=== PATIENT | male | born 1965 | race Caucasian/White ===

== ENCOUNTER → 2017-09-06 | Outpatient (CLI) | payer BC | LOC: M WUC 09:03 | DX: M79.9 Soft tissue disorder, unspecified (principal); S22.31XA Fracture of one rib, right side, initial encounter for closed fracture; X58.XXXA Exposure to other specified factors, initial encounter; Y92.89 Other specified places as the place of occurrence of the external cause | CPT/HCPCS: 71101 ==

== ENCOUNTER 2019-01-15 12:29 | Inpatient (IN) | payer BC ==
[~2019-01-15] VITALS: Ht 190.5 cm; Wt 121.1 kg
[~2019-01-15 12:29] MED LIST: FENO160T10 PO; HYDR12.55 PO; MAGN500C PO; MULTCAP PO; OMEGCAP4 PO; ZOLO50TA PO
[2019-01-15] MEDS ORDERED: GAS125CA15 PO (13:09)
[2019-01-15] MEDS ORDERED: ROPI0.5T PO (13:09)
[2019-01-15 13:10] LABS: BASO % 0.6 % (0.0-1.0); EOS # 0.1 10^3/uL (0.0-0.50); EOS % 1.9 % (0.0-3.0); HEMATOCRIT 46.8 % (42.0-52.0); HEMOGLOBIN 15.6 g/dl (13.5-17.5); LYMPH # 1.6 10^3/uL (1.5-4.5); LYMPH % 23.9 % (24.0-44.0); MEAN CORPUSCULAR HEMOGLOBIN 28.2 pg (27.0-33.0); MEAN CORPUSCULAR HGB CONC 33.3 g/dl (32.0-36.5); MEAN CORPUSCULAR VOLUME 84.6 fl (80.0-96.0); MONO # 0.6 10^3/uL (0.0-0.8); MONO % 8.4 % (0.0-5.0); NEUTROPHILS # 4.4 10^3/uL (1.8-7.7); NEUTROPHILS % 64.9 % (36.0-66.0); PLATELET COUNT, AUTOMATED 258 10^3/uL (150-450); RED BLOOD COUNT 5.53 10^6/uL (4.30-6.10); WHITE BLOOD COUNT 6.7 10^3/uL (4.0-10.0)
[2019-01-15 13:20] LABS: INR 1.01; PROTHROMBIN TIME 13.4 SECONDS (12.1-14.4)
--- NOTE | 2019-01-15 13:20 | REP ---
Clinical: Possible cerebrovascular infarction Comparison: None . Findings: The ventricles, sulci, and cisterns are normal in position and appearance. Ko-white differentiation is maintained. No acute intracranial hemorrhage, mass/mass effect, pathology or trauma/injury. No evidence for acute infarction. No extra-axial fluid collection. Calvarium is intact. Paranasal sinuses and mastoid air cells are clear. Impression: Normal noncontrast head CT. No evidence for acute intracranial pathology or trauma/injury. Electronically Signed by Crow Bruce MD 01/15/2019 01:12 P
[2019-01-15 13:21] LABS: PARTIAL THROMBOPLASTIN TIME 26.9 SECONDS (25.4-37.6)
--- NOTE | 2019-01-15 13:23 | REP ---
Clinical: Cerebrovascular infarction . Comparison: 09/06/2017 . Findings: The mediastinum and cardiac silhouette are stable and within normal limits for portable technique. The lung corado are clear without acute consolidation, effusion, or pneumothorax. Skeletal structures are intact. Impression: No acute cardiopulmonary process appreciated. Electronically Signed by Crow Bruce MD 01/15/2019 01:14 P
[2019-01-15 13:34] LABS: BLOOD UREA NITROGEN 16 MG/DL (7-18); CARBON DIOXIDE LEVEL 27 MEQ/L (21-32); CHLORIDE LEVEL 107 MEQ/L (98-107); CPK CREATINE PHOSPHOKINASE 147 U/L (39-308); CREATININE FOR GFR 1.08 MG/DL (0.70-1.30); GLOMERULAR FILTRATION RATE > 60.0 (>56); GLUCOSE, FASTING 110 MG/DL (70-100); MAGNESIUM LEVEL 2.1 MG/DL (1.8-2.4); MB/CK RELATIVE INDEX 1.02 (< OR =4); SODIUM LEVEL 143 MEQ/L (136-145); TROPONIN I < 0.02 NG/ML (< 0.10)
[2019-01-15] MEDS ORDERED: HYDR25TAB PO (14:15)
[2019-01-15] MEDS ORDERED: SILD20TA11 PO (14:15)
[2019-01-15] MEDS ORDERED: [UNRECOGNIZED DRUG - OTHER] PO (14:15)
--- NOTE | 2019-01-15 14:15 | HPEPDOC ---
[facility] Medical History & Physical Date of Admission Jan 15, 2019 Date of Service: Jan 15, 2019 Primary Care Physician: BELGICA CORNEJO M.D. History and Physical CHIEF COMPLAINT: LETHARGY, WEAKNESS, CHANGES IN SPEECH HISTORY OF PRESENT ILLNESS: 53 yo male in his usual state of health, woke up this morning lethargic. Was noted by his to have changes in his speech, appeared lethargic, with some uncoordinated motor function. This somewhat improved around 11:30. Patient has no recall of this period from 9:30 to 11:30 this morning. The night before was a typical evening for him. Out for dinner with his , pizza/wings and four beers. [place]ed to his [place], sat in front of a bonfire, then went to sleep around 11:30pm. Of note, he was found to be bradycardic. Patient states he is aware, and this has been ongoing for several years. Colonoscopy WNL 2016. PAST MEDICAL HISTORY: #ABDON/CPAP #HTN #hypertriglyceridemia PAST SURGICAL HISTORY: Denies SOCIAL HISTORY: Marital status: Resides in: [place] Employment: employed Tobacco use: Denies ETOH: socially, few drinks/week Illicit drug use: denies Tattoos done unprofessionally: no IV drug use: denies FAMILY HISTORY: Father: at 44 from MVA, HTN Mother: 76, living Hereditary Diseases: denies ALLERGIES: Please see below. REVIEW OF SYSTEMS: Negative except as per HPI. HOME MEDICATIONS: Please see below. PHYSICAL EXAMINATION: VITAL SIGNS: See below GENERAL APPEARANCE: NAD, lethargic HEENT: NC/AT, EOMI, PERRLA CARDIOVASCULAR: +S1S2, bradycardic, RRR LUNGS: CTA B/L ABDOMEN: soft, obese, NT, +BS EXTREMITIES: no edema NEUROLOGICAL: CN II - XII grossly intact, sensation intact throughout, strength 5/5 b/l upper/lower extremities PSYCHIATRIC: AAOx3 LABORATORY DATA: See below. MICROBIOLOGY: Please see below. ASSESSMENT: 53 yo male for focal neurologic deficits, essentially resolved with PMHx HTN, DLP, ABDON/CPAP. #TIA - MRI/MRA pending - carotid US pending - lipid panel pending - echocardiogram pending - neurology c/s pending - 20 mg Zocor/ASA 325 - PT/OT #bradycardia - telemetry monitoring - ECG #HTN - continue HCTZ #DLP - as above, statin therapy, fenofibrate #ABDON - patient may use own CPAP #Depression - continue zoloft #DVT prophylaxis - lovenox Vital Signs Vital Signs Date Time Temp Pulse Resp B/P (MAP) Pulse Ox O2 Delivery O2 Flow Rate FiO2 01/15/19 13:31 154/74 (100) 01/15/19 13:29 49 94 01/15/19 12:52 97.2 16 Room Air Laboratory Data Labs 24H Laboratory Tests 2 01/15/19 12:56: Immature Granulocyte % (Auto) 0.3, White Blood Count 6.7, Red Blood Count 5.53, Hemoglobin 15.6, Hematocrit 46.8, Mean Corpuscular Volume 84.6, Mean Corpuscular Hemoglobin 28.2, Mean Corpuscular Hemoglobin Concent 33.3, Red Cell Distribution Width 13.7, Platelet Count 258, Neutrophils (%) (Auto) 64.9, Lymphocytes (%) (Auto) 23.9L, Monocytes (%) (Auto) 8.4H, Eosinophils (%) (Auto) 1.9, Basophils (%) (Auto) 0.6, Neutrophils # (Auto) 4.4, Lymphocytes # (Auto) 1.6, Monocytes # (Auto) 0.6, Eosinophils # (Auto) 0.1, Basophils # (Auto) 0.0, Nucleated Red Blood Cells % (auto) 0.0, Prothrombin Time 13.4, Prothromb Time International Ratio 1.01, Activated Partial Thromboplast Time 26.9, Anion Gap 9, Glomerular Filtration Rate > 60.0, Blood Urea Nitrogen 16, Creatinine 1.08, Sodium Level 143, Potassium Level 4.0, Chloride Level 107, Carbon Dioxide Level 27, Calcium Level 9.0, Total Creatine Kinase 147, Magnesium Level 2.1, Ammonia 16, Creatine Kinase MB 2.0, Creatine Kinase MB Relative Index 1.02, Troponin I < 0.02 01/15/19 13:02: POC Glucose (Misc Panel) 111H, POC Sodium (Misc Panel) 141, POC Potassium (Misc Panel) 3.9, POC Chloride (Misc Panel) 105, POC Total CO2 (Misc Panel) 26.0, POC Blood Urea Nitrogen (Misc Panel 16, POC Ionized Calcium (Misc Panel) 4.7, POC Creatinine (Misc Panel) 1.0, POC Hematocrit (Misc Panel) 47.0 01/15/19 13:05: Bedside Glucose (Misc Panel) 107H CBC/BMP Laboratory Tests 01/15/19 12:56 Red Blood Count 5.53, Mean Corpuscular Volume 84.6, Mean Corpuscular Hemoglobin 28.2, Mean Corpuscular Hemoglobin Concent 33.3, Red Cell Distribution Width 13.7, Neutrophils (%) (Auto) 64.9, Lymphocytes (%) (Auto) 23.9 L, Monocytes (%) (Auto) 8.4 H, Eosinophils (%) (Auto) 1.9, Basophils (%) (Auto) 0.6, Neutrophils # (Auto) 4.4, Lymphocytes # (Auto) 1.6, Monocytes # (Auto) 0.6, Eosinophils # (Auto) 0.1, Basophils # (Auto) 0.0, Calcium Level 9.0, Total Creatine Kinase 147 Home Medications Scheduled Fenofibrate (Fenofibrate) 160 Mg Tab, 160 MG PO DAILY Hydrochlorothiazide (Hydrochlorothiazide) 25 Mg Tablet, 12.5 MG PO DAILY Ropinirole HCl (Ropinirole HCl) 0.5 Mg Tablet, 0.5 MG PO QHS Sertraline Hcl (Zoloft) 50 Mg Tab, 50 MG PO DAILY Simethicone (Gas Relief) 125 Mg Capsule, 125 MG PO ACHS [Shaklee Vitamins] , 1 TAB PO DAILY Scheduled PRN Sildenafil Citrate (Sildenafil Citrate) 20 Mg Tablet, 20 MG PO ASDIRECTED PRN for ERECTILE DYSFUNCTION Allergies Coded Allergies: No Known Drug Allergies (Verified Allergy, Unknown, 01/15/19) A-FIB/CHADSVASC A-FIB History Current/History of A-Fib/PAF?: No Current PO Anticoag Therapy: No HAMILTON HART MD Jan 15, 2019 14:15
[2019-01-15 14:41] LABS: ALBUMIN 4.1 GM/DL (3.2-5.2); ALT/SGPT 36 U/L (12-78); BILIRUBIN,DIRECT 0.1 MG/DL (0.0-0.2); BILIRUBIN,TOTAL 0.5 MG/DL (0.2-1.0); TOTAL PROTEIN 7.6 GM/DL (6.4-8.2)
[2019-01-15] MEDS: ASPIRIN 81 MG CHEW TABLET PO SCH (14:53)
--- NOTE | 2019-01-15 15:06 | REP ---
Clinical: Transient ischemic attack . Technique: Ko scale and color Doppler evaluation using linear high frequency transducer Findings: Two-dimensional ko scale and color images demonstrate normal arterial lumen with laminar flow and no appreciable narrowing. Color Doppler interrogation demonstrates normal arterial wave patterns and velocities with no significant spectral broadening. Normal flow direction is appreciated in the bilateral vertebral arteries. RIGHT (cm/s) LEFT (cm/s) ICA peak systolic velocity 80.7 63.9 ICA diastolic velocity 22.6 23.4 ECA peak systolic velocity 121.6 131.9 CCA peak systolic velocity 158.9 139.2 ICA/CCA ratio 0.51 0.46 Impression: No hemodynamically significant areas of narrowing or stenosis appreciated. Based on set standards narrowing falls within the less than 50% range. Electronically Signed by Crow Bruce MD 01/15/2019 02:57 P
[2019-01-15] MEDS ORDERED: SLF 3 ML SYR IV PRN (17:00)
--- NOTE | 2019-01-15 17:06 | REP ---
Clinical: Transient ischemic attack. Technique: Standard noncontrast MRI of the brain. Findings: Ventricles, sulci, and cisterns are symmetric and normal. Ko-white differentiation is maintained. No acute intracranial hemorrhage, mass or mass effect. No signal abnormalities are appreciated. Diffusion weighted sequence appears normal and without evidence for acute infarction. Midline and midbrain structures are symmetric and intact/normal. No extra-axial collection. The calvarium is intact. Visualized orbits and sinuses are normal. Impression: Negative noncontrast MRI of the brain. No evidence for acute intracranial infarction, hemorrhage or mass. Electronically Signed by Crow Bruce MD 01/15/2019 04:59 P
--- NOTE | 2019-01-15 17:07 | REP ---
CLINICAL: Rule out cerebral infarction. TECHNIQUE: Axial noncontrast 3-D [id number] source images with multiplanar MIP reformations. COMPARISON: None FINDINGS: There is symmetric appearance to the intracranial vasculature and venetie of Lucas, which appears relatively normal. The visualized portions of the vertebrobasilar system appear intact. There is no evidence for arteriovenous malformation, aneurysm, or significant loss of vascular signal to suggest areas of decreased vascular supply. IMPRESSION: No evidence for aneurysm, AVM, or significant further pathology. Intracranial vasculature appears relatively symmetric. Electronically Signed by Crow Burce MD 01/15/2019 05:00 P
[2019-01-15 18:15] VITALS: BP 149/83
[2019-01-15] MEDS ORDERED: ACETAMINOPHEN TAB 650MG DOSE (2X325MG) PO ONE (19:15)
--- NOTE | 2019-01-15 19:38 | ECGEPIP ---
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
[2019-01-15 20:00] VITALS: BP 138/77
[2019-01-15 20:13] LABS: CPK CREATINE PHOSPHOKINASE 127 U/L (39-308); MB/CK RELATIVE INDEX 0.87 (< OR =4); TROPONIN I < 0.02 NG/ML (< 0.10)
[2019-01-15] MEDS: SLF 3 ML SYR IV SCH (20:35)
[2019-01-15] MEDS: SIMVASTATIN 20 MG TAB PO SCH ×2 (20:54→21:09)
[2019-01-15 23:59] VITALS: BP 139/72
[2019-01-16 04:00] VITALS: BP 145/80
[2019-01-16 05:37] LABS: HEMATOCRIT 45.7 % (42.0-52.0); HEMOGLOBIN 15.1 g/dl (13.5-17.5); MEAN CORPUSCULAR HEMOGLOBIN 27.9 pg (27.0-33.0); MEAN CORPUSCULAR VOLUME 84.5 fl (80.0-96.0); PLATELET COUNT, AUTOMATED 267 10^3/uL (150-450); RED BLOOD COUNT 5.41 10^6/uL (4.30-6.10); WHITE BLOOD COUNT 8.5 10^3/uL (4.0-10.0)
[2019-01-16] MEDS: SLF 3 ML SYR IV SCH ×3 (06:02→20:53)
[2019-01-16 06:06] LABS: ALBUMIN 3.4 GM/DL (3.2-5.2); ALT/SGPT 39 U/L (12-78); BILIRUBIN,TOTAL 0.7 MG/DL (0.2-1.0); BLOOD UREA NITROGEN 13 MG/DL (7-18); CARBON DIOXIDE LEVEL 27 MEQ/L (21-32); CHLORIDE LEVEL 109 MEQ/L (98-107); CHOLESTEROL LEVEL 178 MG/DL (<200); CHOLESTEROL RISK RATIO 5.741 (<5); CREATININE FOR GFR 0.93 MG/DL (0.70-1.30); GLOMERULAR FILTRATION RATE > 60.0 (>56); GLUCOSE, FASTING 107 MG/DL (70-100); HDL CHOLESTEROL 31 MG/DL (>40); LDL CHOLESTEROL 116 MG/DL (<100); NON-HDL-C 147 MG/DL; POTASSIUM SERUM 3.6 MEQ/L (3.5-5.1); SODIUM LEVEL 142 MEQ/L (136-145); TOTAL PROTEIN 7.2 GM/DL (6.4-8.2); TRIGLYCERIDES LEVEL 153 MG/DL (<150)
[2019-01-16 08:00] VITALS: BP 157/77
--- NOTE | 2019-01-16 08:37 | IPNPDOC ---
Text Note Date of Service The patient was seen on 01/16/19. NOTE Subjective: Patient seen and examined at bedside. Feels better today. Overnight events significant for bradycardia. He was woken up by staff for assessment, with no complaints. He did wear his CPAP at night. Objective: PHYSICAL EXAMINATION: VITAL SIGNS: See below GENERAL APPEARANCE: NAD, lethargic HEENT: NC/AT, EOMI, PERRLA CARDIOVASCULAR: +S1S2, bradycardic, RRR LUNGS: CTA B/L ABDOMEN: soft, obese, NT, +BS EXTREMITIES: no edema NEUROLOGICAL: CN II - XII grossly intact, sensation intact throughout, strength 5/5 b/l upper/lower extremities PSYCHIATRIC: AAOx3 LABORATORY DATA: See below. MICROBIOLOGY: Please see below. ASSESSMENT: 53 yo male for focal neurologic deficits, essentially resolved with PMHx HTN, DLP, ABDON/CPAP noted to be bradycardic. #TIA - MRI/MRA unremarkable - carotid US unremarkable - lipid panel abnormal - echocardiogram pending - neurology c/s pending - 20 mg Zocor/ASA 325 - PT/OT - cleared #bradycardia - telemetry monitoring - repeat ecg pending - discussed with cardiology - no indication for PPM at this time, nocturnal bradycardia related to his ABDON #HTN - continue HCTZ #DLP - as above, statin therapy, fenofibrate #ABDON - patient may use own CPAP #Depression - on zoloft #DVT prophylaxis - lovenox VS,Fishbone, I+O VS, Fishbone, I+O Laboratory Tests 01/15/19 12:56 Red Blood Count 5.53, Mean Corpuscular Volume 84.6, Mean Corpuscular Hemoglobin 28.2, Mean Corpuscular Hemoglobin Concent 33.3, Red Cell Distribution Width 13.7, Neutrophils (%) (Auto) 64.9, Lymphocytes (%) (Auto) 23.9 L, Monocytes (%) (Auto) 8.4 H, Eosinophils (%) (Auto) 1.9, Basophils (%) (Auto) 0.6, Neutrophils # (Auto) 4.4, Lymphocytes # (Auto) 1.6, Monocytes # (Auto) 0.6, Eosinophils # (Auto) 0.1, Basophils # (Auto) 0.0 01/16/19 05:16 Red Blood Count 5.41, Mean Corpuscular Volume 84.5, Mean Corpuscular Hemoglobin 27.9, Mean Corpuscular Hemoglobin Concent 33.0, Red Cell Distribution Width 13.7, Calcium Level 8.0 L, Aspartate Amino Transf (AST/SGOT) 28, Alanine Aminotransferase (ALT/SGPT) 39, Alkaline Phosphatase 36 L, Total Bilirubin 0.7, Triglycerides Level 153 H, LDL Cholesterol 116 H, Total Protein 7.2, Albumin 3.4 Vital Signs Date Time Temp Pulse Resp B/P (MAP) Pulse Ox O2 Delivery O2 Flow Rate FiO2 01/16/19 04:00 96.9 45 16 145/80 (101) 99 01/15/19 17:48 Room Air I&O- Last 24 Hours up to 6 AM 01/16/19 06:00 Intake Total 1235 ml Output Total 0 ml Balance 1235 ml HAMILTON HART MD Jan 16, 2019 08:37
[2019-01-16] MEDS: ASPIRIN 81 MG CHEW TABLET PO SCH (08:46)
[2019-01-16] MEDS ORDERED: ACETAMINOPHEN TAB 650MG DOSE (2X325MG) PO PRN (11:15)
[2019-01-16 12:00] VITALS: BP 145/77
[2019-01-16] MEDS: SIMETHICONE 80 MG CHEW TAB PO SCH ×3 (12:00→20:53)
[2019-01-16] MEDS ORDERED: PILL CUTTER 1 EACH XX PRN (13:00)
[2019-01-16] MEDS: hydroCHLOROthiazide 12.5 MG CAPSULE PO SCH (13:42)
[2019-01-16] MEDS: FENOFIBRATE 145 MG TAB (TRICOR) PO SCH (13:42)
[2019-01-16] MEDS: SERTRALINE HCL 50 MG TAB PO SCH (13:42)
[2019-01-16 16:00] VITALS: BP 144/77
--- NOTE | 2019-01-16 18:41 | ECGEPIP ---
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 No significant change from 01/15/19. Electronically Signed on 01-16-2019 18:41:34 EDT by Yandel Lucas
[2019-01-16 20:00] VITALS: BP 146/70
[2019-01-16] MEDS: SIMVASTATIN 20 MG TAB PO SCH (20:53)
[2019-01-16] MEDS ORDERED: rOPINIRole 0.25 MG TAB(REQUIP) PO SCH (21:00)
[2019-01-16 23:59] VITALS: BP 138/68
[2019-01-17 04:00] VITALS: BP 138/76
[2019-01-17] MEDS: SLF 3 ML SYR IV SCH ×2 (06:04→13:05)
--- NOTE | 2019-01-17 06:47 | ECHO ---
DATE OF PROCEDURE: 01/16/2019 DATE OF : 1965 AGE: 53 GENDER: Male HEIGHT: 75 inches WEIGHT: 271 pounds BODY SURFACE AREA: 2.5 m2 INPATIENT: PCU - Room 3229 REFERRING PHYSICIAN: Dr. Lucas Banks INDICATION: Transient ischemic attack. MEASUREMENTS; 2-D Measurements: RV: 4.1 cm LV: 4.8 cm Septum: 1.3 cm Posterior wall: 1.2 cm Aortic root: 3.6 cm LA: 4.5 cm LVEF: 75% Doppler Measurements: AV: 2.0 m/s LVOT: 1.5 m/s LVOT diameter: 2.0 cm Mean AV systolic gradient: 9 mmHg MV - E 108 A 52 EA ratio 2.1 Early mitral deceleration time: 254 ms E prime: 10.7 A prime: 9.5 E/E prime ratio: 10 PCWP: 14 mmHg PV: 1.0 m/s Pulmonary artery acceleration time: 140 ms RVSP: 30 mmHg IVC: 2.2 cm COMMENTS: Sinus bradycardia without intraventricular conduction disturbance. Technically challenging study in light of the patient's body habitus, but diagnostically useful information was still obtained. M-mode and two-dimensional echocardiography was performed with pulsed, continuous wave, color flow and tissue Doppler studies. Mild concentric left ventricular hypertrophy with hyperkinetic wall motion. Mildly dilated left atrium with currently normal assessment of LV diastolic function and estimated mean left atrial pressure upper limits of normal. Normal right heart chamber sizes and wall motion with current estimated pulmonary arterial pressure upper limits of normal to borderline increased. IVC size upper limits of normal with adequate respiratory collapse against right heart failure. Normal appearing and functioning valvular structures. Normal aortic root size. No apparent intracardiac mass or pericardial effusion. If a cardiac source of embolic material is seriously suspect, would recommend a transesophageal echocardiogram. MTDD
[2019-01-17 08:00] VITALS: BP 132/80
[2019-01-17] MEDS: SERTRALINE HCL 50 MG TAB PO SCH (08:47)
[2019-01-17] MEDS: FENOFIBRATE 145 MG TAB (TRICOR) PO SCH (08:47)
[2019-01-17] MEDS: hydroCHLOROthiazide 12.5 MG CAPSULE PO SCH (08:47)
[2019-01-17] MEDS: SIMETHICONE 80 MG CHEW TAB PO SCH ×3 (08:48→17:49)
[2019-01-17] MEDS ORDERED: ASPIRIN 81 MG CHEW TABLET PO SCH (09:00)
--- NOTE | 2019-01-17 11:26 | IPNPDOC ---
Subjective Date Seen The patient was seen on 01/17/19. Subjective Chief Complaint/HPI 53 yo male admitted with changes in speech and lethargy concerning for TIA, ABDON. neurology consulted. Patients bradycardia during night improving and asymptomatic (with rates between 47-60). No reoccurance of heart rate less than 40. EEG this AM (out of room at 1130)and patient seen at 1700. Cardiac echo unrevealing Currently, patient and states he is back to baseline, no gait changes, no HODGSON, no speech changes, no "unfocused" feelings Objective Physical Examination General Exam: Positive: Alert, Cooperative, No Acute Distress Eye Exam: Positive: PERRLA ENT Exam: Positive: Mucous membr. moist/pink Heart Exam: Positive: Bradycardic (58) Telemetry: Positive: Bradycardia Extremity Exam: Positive: Normal pulses (no edema to ankles) Skin Exam: Positive: Nl turgor and temperature Neuro Exam: Positive: Normal Gait, Normal Speech, Strength at 5/5 X4 ext Psych Exam: Positive: Mental status NL, Mood NL, Oriented x 3 Assessment /Plan Assessment TIA vs Seizure Await neurology recommendations; continue lipid control and ASA Bradycardia - patient is on shakely vitamin with herbs for heart health (unknown ingredients). Advised to stop vitamins until seen by PCP Plan/VTE VTE Prophylaxis Ordered?: Yes Plan possible d/c home today VS, I&O, 24H, Fishbone Vital Signs/I&O Vital Signs Date Time Temp Pulse Resp B/P (MAP) Pulse Ox O2 Delivery O2 Flow Rate FiO2 01/17/19 08:00 98.0 53 17 132/80 (97) 98 01/15/19 17:48 Room Air I&O- Last 24 Hours up to 6 AM 01/17/19 06:00 Intake Total 1800 ml Output Total 3550 ml Balance -1750 ml ERUM RAMOS DO Jan 17, 2019 11:25
[2019-01-17 12:00] VITALS: BP 136/80
--- NOTE | 2019-01-17 14:02 | CR ---
DATE OF CONSULTATION: 01/16/2019 REFERRING PROVIDER: Lucas Banks MD REASON FOR CONSULTATION: Suspected transient ischemic attack (TIA). Bucky Mireles is a 53-year-old male with past medical history significant for migraine headaches. The patient had an episode of acute altered mental status. The patient was at home. Went to bed fairly early. Woke up in the morning and was having a conversation with his . The patient's noted that he was quite lethargic, falling asleep in conversation. The patient had relations with his in the morning, but the states that he did not have an orgasm. The patient did, however, suffer with a significant migraine headache later in the morning and throughout the rest of the day. The patient does have a strong history of migraines in the past but has never had postcoital migraines prior to this. The patient was noted to walk towards the bathroom where his was, and he was having some dysarthria and confusion. He was stating that he was having trouble walking. He was not noted to have any significant facial droop or weakness on any side of the body. His called 9-1-1. The patient has had a loss of memory from the onset of the morning event to after received an MRI of the brain. MRI of the brain completed at [facility] was negative for any acute stroke. MR angiogram of the brain was also negative. Carotid ultrasounds were negative. The patient has been placed on aspirin 324 mg daily. He is also on statin therapy. The patient at this point in time is back to baseline. He has no recollection of the events that occurred. He did not have classical symptoms of transient global amnesia with repeating himself, although the event sounds very similar. The event that occurred could certainly be a TIA resulting in transient global amnesia, possible migraine, and also a seizure needs to be excluded. The patient will remain in the hospital on telemetry monitoring. He has been noted to have asymptomatic bradycardia during sleep related to atrial fibrillation, as per cardiology. The patient was not recommended to have any pacemaker placement. The patient is willing to continue low-dose 81-mg aspirin. Electroencephalogram (EEG) has been ordered. PAST MEDICAL HISTORY: Hypertension. Hypertriglyceridemia. Obstructive sleep apnea, on continuous positive airway pressure (CPAP). Obesity. PAST SURGICAL HISTORY: None. SOCIAL HISTORY: The patient socially uses alcohol. Denies any illicit drugs. Denies use of tobacco. FAMILY HISTORY: Father at the age of 44 from motor vehicle accident. Mother alive and living at 76. Otherwise, noncontributory. ALLERGIES: No known drug allergies. HOME MEDICATIONS: - Tricor 145 mg by mouth every day - simethicone 125 mg by mouth nightly - sertraline 50 mg by mouth every day - ropinirole 0.5 mg by mouth nightly - hydrochlorothiazide 25 mg half tablet by mouth every day PHYSICAL EXAMINATION: Blood pressure is 144/77, pulse rate 51, respiratory rate is 16, temperature is 98.2 degrees Fahrenheit, oxygenation 99% on room air, current height is 6 feet 3 inches, current weight is 124.3 kg. The patient is awake, alert, oriented to person, place, and time. Speech, language, comprehension, and repetition are intact. Pupils are 3 mg, round, reactive to light. Extraocular movements are intact in all directions without nystagmus. Sensation to V1, V2, V3 is intact to light touch. No facial asymmetry to activation. Palate elevates symmetrically. Tongue is midline. No weakness of sternocleidomastoids bilaterally. There is a subtle asymmetry of the right corner of the mouth with smiling, though, according to the patient and the patient's , this was his baseline. Hearing is subjectively equal to finger rub. There is no pronator drift. Strength is 5/5 including bilateral biceps, deltoids, triceps, handgrip, iliopsoas, quadriceps, anterior tibialis. Deep tendon reflexes are 2s throughout. Romberg test is deferred. Sensory is intact to light touch in all four extremities. Coordination: Normal [id number] without any signs of gross ataxia or dysmetria. ASSESSMENT: 1. Possible transient ischemic attack, either thalamic versus posterior left temporoparietal. 2. Transient global amnesia secondary to transient ischemic attack verus postcoital migraine. 3. Rule out seizure. PLAN: Continue aspirin 81 mg by mouth every day. Continue Zocor 20 mg by mouth acute distress. Continue tricor 145 mg by mouth every day. Obtain EEG. Rule out seizure. The patient can followup in the [facility] 6-8 weeks after discharge. [facility]
[2019-01-17 16:00] VITALS: BP 136/78
--- NOTE | 2019-01-17 17:46 | DS.PDOC ---
Discharge Summary General Date of Admission Jan 15, 2019 at 14:03 Date of Discharge 01/17/19 Primary Care Physician: JORGE CORNEJO M.D. Attending Physician: ERUM RAMOS DO Specialist/Consultants Involve: TAMMY AGUILERA MD Discharge Summary PROCEDURES PERFORMED DURING STAY: EEG, ECHO, MRI, Neck Vascular studies ADMITTING DIAGNOSES: TIA, Bradycardia, HTN, ABDON DISCHARGE DIAGNOSES: 1. TIA 2. possible seizure disorder 3. HTN 4. ABDON 5. Bradycardia COMPLICATIONS/CHIEF COMPLAINT: Transient Ischemic Attack. HISTORY OF PRESENT ILLNESS: 53 yo male brought to ED with possible CVA due to "unfocused eye/behaviors", gait instability and difficulty articulating per . See H&P for details. HOSPITAL COURSE: Admitted, serial neurological exams with improving trend back to baseline. he initially has asymptomatic bradycardia (38's) but this improved and 24 hour prior to discharge, his HR was between 45-60. Patient had been taking Shakley vitamins and herbs for "heart health" and it is unknown if it may have contributed to bradycardia. He has not had these vitamins for 2 days. As for his TIA symptoms, he was placed on ASA, continued with cholesterol lower drugs and neurology consulted. EEG to r/o seizures is pending. Resulting workup showed no carotid stenosis or signs of CVA. DISCHARGE MEDICATIONS: Please see below. ALLERGIES: Please see below. PHYSICAL EXAMINATION ON DISCHARGE: General: pleasant, NAD, AAOx3 HRRR LCTA Ext: no edema Neuro: CN3-12 intact, no gross motor or sensory deficits LABORATORY DATA: Please see below. IMAGING: Vascular US NECK:Impression: No hemodynamically significant areas of narrowing or stenosis appreciated. Based on set standards narrowing falls within the less than 50% range. MRI/MRA brain:Impression: Negative noncontrast MRI of the brain. No evidence for acute intracranial infarction, hemorrhage or mass. no aneurysm, AVM or vascular abnormality ECHO: Mild concentric left ventricular hypertrophy with hyperkinetic wall motion. Mildly dilated left atrium with currently normal assessment of LV diastolic function and estimated mean left atrial pressure upper limits of normal. Normal right heart chamber sizes and wall motion with current estimated pulmonary arterial pressure upper limits of normal to borderline increased. IVC size upper limits of normal with adequate respiratory collapse against right heart failure. Normal appearing and functioning valvular structures. Normal aortic root size. No apparent intracardiac mass or pericardial effusion. PROGNOSIS:GOOD ACTIVITY: [As tolerated DIET: regular DISCHARGE PLAN:d/c home DISPOSITION: stable DISCHARGE INSTRUCTIONS: 1. take 81mg ASA daily 2. continue with zocor and tricor 3. reviewed "marlow 4 hour treatment window" for CVA should symptoms reoccur ITEMS TO FOLLOWUP ON ON OUTPATIENT: 1. Neurology in 6-8 weeks to review results of EEG and TIA 2. [facility] to review ABDON in 2-4 weeks 3. PCP - Jorge Cornejo MD in 5-7 days for evaluation of herbal vitamins and possible bradycardia, consider zio patch or holter monitor if bradycardia persists DISCHARGE CONDITION: stable DISCHARGE TIME: 45 minutes. Vital Signs/I&Os Vital Signs Date Time Temp Pulse Resp B/P (MAP) Pulse Ox O2 Delivery O2 Flow Rate FiO2 01/17/19 16:00 98.0 56 17 136/78 (97) 98 01/15/19 17:48 Room Air I&O- Last 24 Hours up to 6 AM 01/17/19 06:00 Intake Total 1800 ml Output Total 3550 ml Balance -1750 ml Laboratory Data Labs 24H Laboratory Tests 01/16/19 05:16 Red Blood Count 5.41, Mean Corpuscular Volume 84.5, Mean Corpuscular Hemoglobin 27.9, Mean Corpuscular Hemoglobin Concent 33.0, Red Cell Distribution Width 13.7, Calcium Level 8.0 L, Aspartate Amino Transf (AST/SGOT) 28, Alanine Aminotransferase (ALT/SGPT) 39, Alkaline Phosphatase 36 L, Total Bilirubin 0.7, Triglycerides Level 153 H, LDL Cholesterol 116 H, Total Protein 7.2, Albumin 3.4 Discharge Medications Scheduled Aspirin (Children's Aspirin) 81 Mg Tab.chew, 81 MG PO DAILY Fenofibrate (Fenofibrate) 160 Mg Tab, 160 MG PO DAILY, (Reported) Hydrochlorothiazide (Hydrochlorothiazide) 25 Mg Tablet, 12.5 MG PO DAILY, (Reported) Ropinirole HCl (Ropinirole HCl) 0.5 Mg Tablet, 0.5 MG PO QHS, (Reported) Sertraline Hcl (Zoloft) 50 Mg Tab, 50 MG PO DAILY, (Reported) Simethicone (Gas Relief) 125 Mg Capsule, 125 MG PO ACHS, (Reported) Simvastatin (Simvastatin) 20 Mg Tablet, 20 MG PO QHS Allergies Coded Allergies: No Known Drug Allergies (Verified Allergy, Unknown, 01/15/19) ERUM RAMOS DO Jan 17, 2019 17:44
[2019-01-17] MEDS ORDERED: ASPI81CH8 PO (17:59)
[2019-01-17] MEDS ORDERED: SIMV20TA2 PO (17:59)
--- NOTE | 2019-01-18 16:55 | EEG ---
DATE OF PROCEDURE: 01/17/2019 REFERRING PHYSICIAN: Lucas Banks MD DIAGNOSIS: Confusion, headache and feeling out of it during episode. EEG #: [id number] - 99 HISTORY The patient is a 53-year-old man who was admitted at [facility] due to be lethargic, alteration of speech, incoordination and inability to recall the episode. This EEG was done to rule out epileptic potential. He is currently taking aspirin, simvastatin, ropinirole, Zoloft, etc.. TECHNICAL DESCRIPTION This digital EEG was recorded by 21 scalp, ear and two EKG electrodes and was reviewed in bipolar and referential montages following reformatting in 10-20 international electrode placement system. INTERPRETATION The patient was noted to be in awake and drowsy states during this EEG. Resting awake background rhythm consisted of 9 Hz alpha activity measuring 10-30 microvolts in amplitude which was symmetric and reactive to eye opening. Attenuation of posterior dominant rhythm was seen during transition to drowsiness. Stage I and II sleep were reviewed and symmetric bilaterally. Hyperventilation and photic stimulation remained unremarkable. EKG revealed bradycardia. No focal, lateralizing or epileptiform abnormalities were seen. No clinical or electrographic seizures were recorded. CONCLUSION This EEG in awake, drowsy states, stage I and II sleep is within normal limits.
== END 2019-01-17 18:51 | disposition home or self-care (01) | DRG 47 ==
LOC: M ED 12:29 → EDBD 12:29 → M ED INP 14:03 → M PCU 18:00
PROVIDERS: ADMIT Internal Medicine; ATTEND Family Medicine
DX: G45.9 Transient cerebral ischemic attack, unspecified (principal); I10 Essential (primary) hypertension; E78.1 Pure hyperglyceridemia; G45.4 Transient global amnesia; R00.1 Bradycardia, unspecified; G47.33 Obstructive sleep apnea (adult) (pediatric); R29.818 Other symptoms and signs involving the nervous system; G40.909 Epilepsy, unspecified, not intractable, without status epilepticus; Z79.899 Other long term (current) drug therapy

== ENCOUNTER 2019-05-01 10:56 | Day surgery (SDC) | payer BC ==
[~2019-05-01] VITALS: Ht 190.5 cm; Wt 107.0 kg
[~2019-05-01 10:56] MED LIST changes: +ALL10TAB29 PO; +ASPI81CH8 PO; +GAS125CA15 PO; +HYDR25TAB PO; +LR 1,000 ML IV ONE; +ROPI0.5T PO; +SILD20TA11 PO; +SIMV20TA2 PO; +[UNRECOGNIZED DRUG - OTHER] PO; +[UNRECOGNIZED DRUG - OTHER] PO
[2019-05-01] MEDS ORDERED: LIDOCAINE 2% INJ 100 MG/5 ML SDV (FOR ANES.) As Ordered ONE (11:28)
[2019-05-01] MEDS ORDERED: PROPOFOL 200 MG/20 ML VIAL As Ordered ONE (11:28)
[2019-05-01] MEDS ORDERED: MIDAZOLAM INJ 2 MG/2 ML VIAL (J2250) As Ordered ONE (11:29)
[2019-05-01] MEDS ORDERED: fentaNYL 100 MCG/2 ML INJECTION (J3010) As Ordered ONE (11:29)
[2019-05-01] MEDS ORDERED: LIDOCAINE 1% MDV 20ML VIAL As Ordered ONE (12:38)
[2019-05-01] MEDS ORDERED: KETOROLAC 60 MG/2 ML VIAL (J1885) As Ordered ONE (13:21)
[2019-05-01] MEDS ORDERED: ONDANSETRON 4MG/2ML VIAL (J2405) As Ordered ONE (13:21)
[2019-05-01 13:55] VITALS: BP 133/68
--- NOTE | 2019-05-01 14:09 | RO ---
DATE OF OPERATION: 05/01/2019 PREOPERATIVE DIAGNOSIS: Unexplained syncope. POSTOPERATIVE DIAGNOSIS: Unexplained syncope. FINDINGS: Unexplained syncope. PROCEDURE PERFORMED: Implantation of a [employer] implantable loop recorder. SURGEON: Daniel Roth MD RED HAT LINUX ENGINEER: None. ANESTHESIA: Lidocaine 1% local and monitored anesthetic care. SPECIMENS: None. ESTIMATED BLOOD LOSS: Less than 1 mL. BLOOD PRODUCTS REPLACED: None. DRAINS: None. COMPLICATIONS: None. DESCRIPTION OF PROCEDURE: The patient was prepped and draped over the sternum and left anterior chest. An incision was made approximately 1 cm in length with a #15 blade though the skin at approximately the left 4th interspace about 1 inch lateral to the left parasternal border. The guide on the insertion tool was then placed into the incision and advanced parallel to the anterior ribcage in a caudal direction in the subcutaneous fat. The insertion tool was then rotated 180 degrees, and then the punch was placed into the insertion tool and used to advance the loop recorder into the subcutaneous fat. The punch was then removed, and then the insertion tool was removed leaving the loop recorder in place. The initial R wave amplitude was 0.44 mV. The incision was then approximated temporarily using a 4-0 Biosyn suture applied subcutaneously with the ends of the incision protruding 1 cm from the skin on either side. Next, three layers of Dermabond were applied. The Biosyn suture was then pulled through the incision and removed entirely. The patient tolerated the procedure well without any immediate complications. The implantable loop recorder implanted was a [employer] Reveal LINQ, model LNQ11 with serial number [id number]. [facility] SYSTEMTarah
== END 2019-05-01 13:57 | disposition home or self-care (01) ==
LOC: M SDC 10:56
PROVIDERS: ATTEND Internal Medicine Cardiovascular Disease
DX: R55 Syncope and collapse (principal); I10 Essential (primary) hypertension; E78.5 Hyperlipidemia, unspecified; K21.9 Gastro-esophageal reflux disease without esophagitis; G47.30 Sleep apnea, unspecified; G25.81 Restless legs syndrome; Z79.899 Other long term (current) drug therapy
CPT/HCPCS: 33285; C1764; J0690; J1885; J2250; J2405; J3010

== ENCOUNTER → 2020-12-23 | Outpatient (REF) | payer BC ==
[~2020-12-23] MED LIST changes: -ALL10TAB29 PO; +CETI-24 PO; -GAS125CA15 PO; +HYDR-3490 PO; -HYDR25TAB PO; -LR 1,000 ML IV ONE; -ROPI0.5T PO; +ROPI0.5T3 PO; +SIME125C33 PO; -SIMV20TA2 PO; +SIMV20TA22 PO
== END ==
LOC: M LAB REF 16:26
PROVIDERS: ATTEND Family Medicine
DX: M79.674 Pain in right toe(s) (principal); D32.0 Benign neoplasm of cerebral meninges

== ENCOUNTER → 2020-12-31 | Outpatient (CLI) | payer BC ==
--- NOTE | 2020-12-31 08:37 | REP ---
INDICATION: PAIN IN GREAT TOE COMPARISON: None. TECHNIQUE: AP, lateral, bilateral oblique views right foot. FINDINGS: Early advanced degenerative changes at the 1st metatarsophalangeal joint includes periarticular sclerosis, joint space narrowing and marginal osteophytosis. Moderate degenerative changes are also identified at the 1st interphalangeal joint including periarticular sclerosis, minimal joint space narrowing and early spurring. Remainder of the examination is essentially age-appropriate. IMPRESSION: Degenerative changes predominantly involving the 1st toe.. <Electronically signed by Crow Bruce > 12/31/20 [id number]
== END ==
LOC: M WUC 08:11
PROVIDERS: ATTEND Family Medicine
DX: M79.671 Pain in right foot (principal)

== ENCOUNTER 2022-03-26 10:28 | Day surgery (SDC) | payer BC ==
[~2022-03-26] VITALS: Ht 190.5 cm; Wt 110.1 kg
[~2022-03-26 10:28] MED LIST changes: +LOSA25TA13 PO; +NS 1,000 ML IV ONE; +TADA20TA PO
[2022-03-26] MEDS ORDERED: propofoL 200 MG/20 ML VIAL As Ordered ONE ×2 (11:36→12:01)
[2022-03-26 12:10] VITALS: BP 149/76
== END 2022-03-26 12:16 | disposition home or self-care (01) ==
LOC: M OPP 10:28
PROVIDERS: ATTEND Surgery
DX: Z86.010 Personal history of colon polyps (principal); D12.6 Benign neoplasm of colon, unspecified; K57.30 Diverticulosis of large intestine without perforation or abscess without bleeding; I10 Essential (primary) hypertension; K21.9 Gastro-esophageal reflux disease without esophagitis; G47.33 Obstructive sleep apnea (adult) (pediatric); F17.290 Nicotine dependence, other tobacco product, uncomplicated; Z79.82 Long term (current) use of aspirin; Z79.899 Other long term (current) drug therapy; Z82.49 Family history of ischemic heart disease and other diseases of the circulatory system

== ENCOUNTER → 2023-09-30 | Outpatient (REF) | payer BC ==
[~2023-09-30] MED LIST changes: -NS 1,000 ML IV ONE; -ROPI0.5T3 PO; +ROPI0.5T33 PO
== END ==
LOC: M LAB REF 11:59
PROVIDERS: ATTEND Family Medicine
DX: N52.9 Male erectile dysfunction, unspecified (principal)